=== PATIENT | male | born 1940 | race Caucasian/White ===

== ENCOUNTER 2017-02-04 12:18 | Day surgery (SDC) | payer OTHER ==
[~2017-02-04] VITALS: Ht 165.1 cm; Wt 69.1 kg
[~2017-02-04 12:18] MED LIST: BUPROBAN150 MG PO; ELAVIL25 MG PO; FLOMAX0.4 MG PO; GLUCOPHAGE500 MG PO; NOVOLIN N100 UNITS/ SC; PRAVACHOL20 MG PO; PREVACID30 MG PO; WELLBUTRIN SR150 MG PO; ZESTRIL10 MG PO
[2017-02-04 13:02] LABS: POINT-OF-CARE METER ID UU14174212
[2017-02-04 13:04] VITALS: BP 146/76
[2017-02-04 15:46] LABS: POINT-OF-CARE METER ID UU13113675
[2017-02-04 16:00] VITALS: BP 193/81
== END 2017-02-04 16:23 | disposition home or self-care (01) ==
LOC: SDC 12:18
PROVIDERS: Ophthalmology
PROC: 08RSX7Z Replacement of Right Conjunctiva with Autologous Tissue Substitute, External Approach (ICD-10-PCS; principal; 2017-02-04)
DX: H11.051 Peripheral pterygium, progressive, right eye (principal); I12.9 Hypertensive chronic kidney disease with stage 1 through stage 4 chronic kidney disease, or unspecified chronic kidney disease; E11.22 Type 2 diabetes mellitus with diabetic chronic kidney disease; N18.3 Chronic kidney disease, stage 3 (moderate); E11.40 Type 2 diabetes mellitus with diabetic neuropathy, unspecified; M06.9 Rheumatoid arthritis, unspecified; I25.10 Atherosclerotic heart disease of native coronary artery without angina pectoris; K21.9 Gastro-esophageal reflux disease without esophagitis; Z79.82 Long term (current) use of aspirin; Z79.84 Long term (current) use of oral hypoglycemic drugs; Z79.899 Other long term (current) drug therapy; Z79.4 Long term (current) use of insulin; Z85.3 Personal history of malignant neoplasm of breast
CPT/HCPCS: 82948; J0690; J1100; J2795